=== PATIENT | male | born 1970 | race Caucasian/White ===

== ENCOUNTER → 2024-05-03 07:37 | Outpatient (REF) | payer BC, SELFPAY | LOC: CLAB 07:37 | PROVIDERS: ATTENDING PHYSICIAN Student in an Organized Health Care Education/Training Program | DX: M79.89 Other specified soft tissue disorders (principal) | CPT/HCPCS: 88307 ==

== ENCOUNTER 2024-08-01 06:29 | Day surgery (SDC) | payer BC, SELFPAY | END 2024-08-01 08:39 | disposition home or self-care (01) | LOC: GI 06:29 | PROVIDERS: ATTENDING PHYSICIAN Internal Medicine | DX: Z12.11 Encounter for screening for malignant neoplasm of colon (principal); D12.0 Benign neoplasm of cecum; D12.2 Benign neoplasm of ascending colon; K62.1 Rectal polyp; K57.30 Diverticulosis of large intestine without perforation or abscess without bleeding; K64.8 Other hemorrhoids | CPT/HCPCS: 45385; 88305 ==